=== PATIENT | female | born 1935 | race Caucasian/White ===

== ENCOUNTER → 2017-11-13 12:52 | Outpatient (CLI) | payer MEDICARE, SELFPAY ==
--- NOTE | 2017-11-13 | DI.ECHO.S_ITS ---
[facility] +---------+ [facility] +---------+ : : [address] : : : : [phone] : : : : Phone: [phone]+ Echocardiogram Report + + :Name: OSCAR SCRHEIBER Study Date: 11/13/2017 Height: 67 in : :[facility] Weight: 176 lb : : Gender: Female BSA: 1.9 m2 : :: 1935 Age: 82 yrs BP: 156/78 mmHg: :Reason For Study: Atrial fibrillation : : Performed By: Gilda Cummins : :Referring: STEPH VILCHIS : + + Interpretation Summary The left ventricle is normal in size. Left ventricular systolic function is mildly reduced. Left ventricular ejection fraction is estimated to be 45%. Compared to the prior exam, left ventricular function is moderately improved. There is persistent hypokinesis along the apical septum and mid septum. Assessment of diastolic parameters indicates a relaxation abnormality of the left ventricle, consistent with normal filling pressures. The right ventricle grossly appears normal in size with probable normal systolic function. The right ventricular systolic pressure is estimated at 33 mmHg assuming a right atrial pressure of 3 mm Hg. Borderline left atrial enlargement. Borderline right atrial enlargement. There is mild mitral regurgitation. Compared to the prior echo study, there has been a decrease in the severity of mitral regurgitation. There is no other significant valvular heart disease. The ascending aorta is mildly enlarged. Procedure: A two-dimensional transthoracic echocardiogram with color flow and Doppler was performed. The study quality was technically adequate. Comparison is made with the echocardiogram of 08-29-16. The patient was in normal sinus rhythm during the exam. Left Ventricle: The left ventricle is normal in size. Left ventricular wall thickness is mildly increased. Left ventricular systolic function is mildly reduced. Left ventricular ejection fraction is estimated to be 45%. Compared to the prior exam, left ventricular function is moderately improved. There is persistent hypokinesis along the apical septum and mid septum. Assessment of diastolic parameters indicates a relaxation abnormality of the left ventricle, consistent with normal filling pressures. Right Ventricle: The right ventricle grossly appears normal in size with probable normal systolic function. Atria: Borderline left atrial enlargement. Borderline right atrial enlargement. A patent foramen ovale is suspected. Mitral Valve: The mitral valve leaflets appear mildly thickened, but open well. There is mild mitral regurgitation. Compared to the prior echo study, there has been a decrease in the severity of mitral regurgitation. Aortic Valve: The aortic valve is trileaflet. The aortic valve opens well. There is trace aortic regurgitation. Tricuspid Valve: The tricuspid valve is normal in structure and function. There is a trace or physiologic amount of tricuspid regurgitation. The right ventricular systolic pressure is estimated at 33 mmHg assuming a right atrial pressure of 3 mm Hg. Pulmonic Valve: The pulmonic valve is not well visualized. There is trace pulmonic regurgitation. There is no other significant valvular heart disease. Great Vessels: The aortic root is normal size. The ascending aorta is mildly enlarged. The IVC is of normal diameter and collapses greater than 50% with a sniff. This suggests a low right atrial pressure of 3 mm Hg. Pericardium/ Pleura There is no pericardial effusion. There is no pleural effusion. MMode/2D Measurements & Calculations LVIDd: 5.1 cm Ao root diam: 3.5 cm LVIDs: 3.9 cm Aortic Jxn: 2.6 cm FS: 24.4 % asc Aorta Diam: 3.7 cm EPSS: 0.96 cm Ao Arch Diam (Prox Trans): 2.6 cm IVSd: 1.3 cm LVPWd: 1.1 cm LV kemp. diameter/BSA (cm/m^2): 2.7 LV sys. diameter/BSA (cm/m^2): 2.0 LA dimension: 4.2 cm RA long axis: 4.9 cm LA A2 area: 19.6 cm2 RA area: 19.7 cm2 LA A4 area: 20.6 cm2 RA vol: 66.9 ml LA length (vol): 5.2 cm RA : 34.9 ml/m2 LA vol: 66.0 ml IVC diam: 1.7 cm LA vol index: 34.4 ml/m2 RVDd major: 6.0 cm RVD1 (basal): 4.1 cm RVD2 (mid): 3.7 cm Doppler Measurements & Calculations Ao V2 max: 158.7 cm/sec MV E max nahid: 45.1 cm/sec Ao V2 mean: 102.7 cm/sec MV A max nahid: 73.3 cm/sec Ao max P.1 mmHg MV E/A: 0.62 Ao mean P.1 mmHg Med Peak E' Nahid: 4.2 cm/sec Ao V2 VTI: 35.9 cm E/E' med: 10.7 Lat Peak E' Nahid: 4.0 cm/sec E/E' lat: 11.3 E/e' average: 11.0 MV dec time: 0.25 sec MV P1/2t: 71.7 msec TR max nahid: 273.1 cm/sec MV P1/2t max nahid: 43.9 cm/sec TR max P.8 mmHg MVA(P1/2t): 3.1 cm2 PA V2 max: 85.6 cm/sec PA V2 mean: 50.6 cm/sec PA mean P.2 mmHg PA Accel Time: 0.16 sec Reading Physician:[email or web address]
--- NOTE | 2017-11-17 16:59 | PM.PFT.1 ---
Pulmonary Function Test Referral & Results Date Patient Seen: 11/13/17 Requesting provider: Waylon Bae Results: Only the lung volumes and DLCO were measured (at ordering providers request) Lung volumes show an SVC of 3.20 L which is 107% of predicted. The diffusing capacity was measured at 26.42 which is 89% of predicted. No hemoglobin value was provided, so no correction for potential anemia could be made, if appropriate. Interpretation: This study demonstrates normal lung volumes and probably normal diffusing capacity.
== END ==
PROVIDERS: PCP Physician Assistant; Visit Provider Internal Medicine Cardiovascular Disease
DX: I48.1 Persistent atrial fibrillation (principal); I34.0 Nonrheumatic mitral (valve) insufficiency; R06.00 Dyspnea, unspecified; Z87.891 Personal history of nicotine dependence
CPT/HCPCS: 93306; 94010; 94729